=== PATIENT | male | born 1990 | race Caucasian/White ===

== ENCOUNTER 2016-04-28 01:43 | Observation (INO) | payer BC ==
[2016-04-28] VITALS (15 sets, daily range): BP systolic 118–139; BP diastolic 60–85; PULSE 64–85; RESP 12–19; TEMP 98; Ht 182.9 cm; Wt 106.0 kg
[~2016-04-28] VITALS: Ht 182.9 cm; Wt 106.0 kg
[2016-04-28] MEDS ORDERED: morphine 4 MG/ML VIAL IV STA ×2 (02:29→03:13)
[2016-04-28] MEDS ORDERED: ONDANSETRON 4 MG INJ IV STA (02:29)
[2016-04-28] MEDS ORDERED: SOD CHLORIDE 0.9% 1,000 ML IV STA (02:29)
[2016-04-28 03:15] LABS: ADD SCAN DIFF NO
[2016-04-28 03:28] LABS: BASOPHILS % 0.3 % (0.0-2.0); EOSINOPHILS # 0.1 10^3/ul (0.0-0.5); EOSINOPHILS % 0.8 % (0.0-7.0); HEMATOCRIT 42.5 % (42.0-52.0); HEMOGLOBIN 14.7 g/dl (14.0-18.0); LYMPHOCYTES % 18.8 % (15.0-51.0); MEAN CORPUSCULAR HEMOGLOBIN 31.2 pg (29.0-33.0); MEAN CORPUSCULAR HGB CONC 34.6 g/dl (32.0-37.0); MEAN CORPUSCULAR VOLUME 90.2 fl (82.0-101.0); MEAN PLATELET VOLUME 11.2 fl (7.4-10.4); MONOCYTE # 0.6 10^3/ul (0.3-0.9); MONOCYTES % 5.8 % (0.0-11.0); NEUTROPHILS % 73.8 % (39.0-77.0); PLATELET COUNT 217 10^3/UL (140-415); RED BLOOD COUNT 4.71 10^6/ul (4.70-6.10); RED CELL DISTRIBUTION WIDTH 12.5 % (11.5-14.5); WHITE BLOOD COUNT 10.8 10^3/ul (4.8-10.8)
[2016-04-28 03:32] LABS: POTASSIUM 3.7 mmol/L (3.5-5.1)
[2016-04-28 03:34] LABS: CREATININE 0.86 mg/dl (0.61-1.24)
[2016-04-28 03:35] LABS: ALBUMIN/GLOBULIN RATIO 1.21; BILIRUBIN,INDIRECT 0.5 mg/dl (0-1.1); BILIRUBIN,TOTAL 0.5 mg/dl (0.2-1.3); CALCIUM 9.3 mg/dl (8.4-10.2); TOTAL PROTEIN 7.3 g/dl (6.1-8.1)
[2016-04-28] MEDS ORDERED: SOD CHLORIDE 0.9% 100 ML ONE (03:45)
[2016-04-28] MEDS ORDERED: IOHEXOL 300MG/ML 150 ML BTL ONE (03:45)
--- NOTE | 2016-04-28 04:10 | RADRPT ---
PROCEDURE: CT Abdomen and pelvis with contrast. CLINICAL INDICATION: Abdominal pain. TECHNIQUE: CT scan of the abdomen and pelvis with contrast was performed on a multi-detector high -resolution CT scanner. The patient was scanned following the uncomplicated intravenous administrat ion of 100 cc of Omnipaque 300. Coronal and sagittal reformatted images were obtained from the axia l source images. Images were reviewed on a high-resolution PACS workstation. One or more of the following dose reduction techniques were used: - Automated exposure control. - Adjustment of the mA and/or kV according to patient size. - Use of iterative reconstruction technique. Exam CTD/vol = 20.04 mGy. Total exam DLP = 1326.04 mGy-cm. COMPARISON: None. FINDINGS: Evaluation of the lung bases demonstrates no pleural or parenchymal disease. Abdomen: The liver is normal in size. There is no focal mass or dilatation of the biliary tree. T he gallbladder is not distended. The spleen, pancreas and bilateral adrenal glands are within dov l limits. Bilateral kidneys are normal in size with symmetric enhancement. There is no focal mass, hydronephrosis or hydroureter. There is no retroperitoneal adenopathy. The abdominal aorta is of normal caliber. There is a distended and fluid filled appendix extending medial and inferior to the cecum with mild adjacent stranding measuring up to 16 mm in diameter. There are multiple appendicoliths within the appendix measuring up to 7 mm. There is no bowel obstruction or free air. There is no diverticulosi s or diverticulitis. There is no ascites. Pelvis: The bladder is unremarkable. There is mild pelvic free fluid. The prostate and seminal ve sicles are within normal limits. There is no significant pelvic adenopathy. Evaluation of the osseous structures demonstrates no suspicious lytic or blastic lesion. IMPRESSION: Acute appendicitis with multiple appendicoliths. Mild pelvic free fluid. A call report was made to Dr. Hedrick at 04:06 a.m. .Mikie Cast MD, MD Date Time Electronically viewed and signed by .Mikie Cast MD, MD on 04/28/2016 04:09 .T/
[2016-04-28] MEDS ORDERED: ONDANSETRON 4 MG INJ IV PRN ×2 (05:00→12:00)
[2016-04-28] MEDS ORDERED: ACETAMINOPHEN 325 MG TAB PO PRN (05:00)
--- NOTE | 2016-04-28 05:22 | HP ---
Date/Time of Note Date/Time of Note DATE: 04/28/16 TIME: 05:21 Assessment/Plan VTE Prophylaxis VTE Prophylaxis Intervention: anti-embolic stocking VTE Contraindication Reason: bleeding (Risk - Surgical Patient) Assessment/Plan Assessment/Plan 1) Acute appendicitis Qualified Code: K35.80 - Acute appendicitis, unspecified acute appendicitis type - Admit to Med-Surg - NPO - Pain Control - CONSULT: Surgery - Dr. Pina notified by ER Physician HPI/ROS Admit Date/Time Admit Date/Time Hx of Present Illness Chief Complaint Mid abdominal pain x3 days HPI 26-year-old male presenting with upper abdominal and mid abdominal pain for about 3 days. He thought he just had the flu or something and tried to "power through it". However, associated symptoms became worse and He has had associated nausea and nonbloody and nonbilious vomiting. He denies any associated fevers or chills. No diarrhea or constipation. The pain has been constant, aching, nonradiating, worse with food, with no alleviating factors. Last ate at 0900 today, but threw it all up. ER Course per ER Physician: Patient is presenting with abdominal pain with nausea and vomiting. Vitals are stable and he is afebrile. On my exam he had right lower quadrant tenderness to palpation at McBurney's point. He has no peritonitis or evidence of sepsis. Labs were within normal limits. CT of the abdomen and pelvis shows evidence of acute appendicitis. I spoke with the surgeon environmental services assistant, who will come see the patient. The patient will be admitted to the hospitalist. His pain was controlled with morphine and his nausea was controlled with Zofran. He remained stable while in the ED. ROS General: Admits: Poor Appetite Denies: Fever, Chills, Generalized Body Aches Eyes: Admits: Denies: Blurry Vision, Double Vision, Yellow Eyes HENT: Admits: Denies: Ear Pain/Pressure, Runny/Stuffy Nose, Sore Throat Cardiovascular: Admits: Denies: Chest Pain, Palpitations, Leg Swelling Pulmonary: Admits: Denies: Cough, Wheeze, Shortness of Breath Gastrointestinal: Admits: Abdominal Pain, Nausea, Vomiting - see HPI Denies: Diarrhea, Blood in Stool, Black-Colored Stool Urogenital: Admits: Denies: Burning with Urination, Urinary Frequency Musculoskeletal: Admits: Denies: Joint Pain, Joint Swelling, Muscle Pain Neurological: Admits: Denies: Headache, Dizziness, Numbness, Tingling, Shooting Pains Integumentary: Admits: Denies: Rash, Itch PMH/Family/Social Past Medical History Medical History: no pertinent history Past Surgical History Past Surgical Hx: no surgical history Social History Smoking Status: Unknown if ever smoked Exam/Review of Systems Vital Signs Vitals Vital Signs Date Time Temp Pulse Resp B/P Pulse Ox O2 Delivery O2 Flow Rate FiO2 04/28/16 03:39 98.6 77 18 147/95 100 Room Air Exam Exam General: Sleeping, easily arousable. Patient is comfortable thanks to pain medication, in no acute distress. Non-toxic. Laying completely still or his abdomen will hurt. Eyes: Sclera White, EOMI HENT: Normocephalic/Atraumatic, External Ears/Nose Normal, Moist Mucus Membranes Neck: Supple, Trachea Midline Cardiovascular: Normal Rate, Normal Rhythm, Normal S1 and S2, No Murmur, No Extra Sounds Pulmonary: Clear to Auscultation Bilaterally, Normal Respiratory Effort, No Rales, Rhonchi or Wheezes Gastrointestinal: Deferred as patient has already been proven to be an acute appendicitis patient and the surgeon will examin him when he arrives. Urogenital: Deferred Musculoskeletal: Normal Muscle Bulk and Tone Neurological: CN II - XII Grossly Intact, Non-Focal, Speech Normal Integumentary: Normal Moisture and Temperature, Good Turgor, No Jaundice, No Rash Lymphatic: No Cervical Lymphadenopathy Psychiatric: Appropriate Mood and Affect, Good Eye Contact Labs Result Diagram: 04/28/16 0235 04/28/16 0235 Medications Medications Laboratory Tests Test 04/28/16 02:35 White Blood Count 10.810^3/ul Red Blood Count 4.7110^6/ul Hemoglobin 14.7g/dl Hematocrit 42.5% Mean Corpuscular Volume 90.2fl Mean Corpuscular Hemoglobin 31.2pg Mean Corpuscular Hemoglobin Concent 34.6g/dl Red Cell Distribution Width 12.5% Platelet Count 89469^3/UL Mean Platelet Volume 11.2fl Neutrophils % 73.8% Lymphocytes % 18.8% Monocytes % 5.8% Eosinophils % 0.8% Basophils % 0.3% Nucleated Red Blood Cells % 0.0/100WBC Neutrophils # 8.010^3/ul Lymphocytes # 2.010^3/ul Monocytes # 0.610^3/ul Eosinophils # 0.110^3/ul Basophils # 0.010^3/ul Nucleated Red Blood Cells # 0.010^3/ul Sodium Level 142mmol/L Potassium Level 3.7mmol/L Chloride Level 102mmol/L Carbon Dioxide Level 27mmol/L Anion Gap 17 Blood Urea Nitrogen 12mg/dl Creatinine 0.86mg/dl Glucose Level 100mg/dl Calcium Level 9.3mg/dl Total Bilirubin 0.5mg/dl Direct Bilirubin 0.00mg/dl Indirect Bilirubin 0.5mg/dl Aspartate Amino Transf (AST/SGOT) 44IU/L Alanine Aminotransferase (ALT/SGPT) 39IU/L Alkaline Phosphatase 93IU/L Total Protein 7.3g/dl Albumin 4.0g/dl Globulin 3.30g/dl Albumin/Globulin Ratio 1.21 Lipase 82U/L Current Medications Medications (Trade) Dose Ordered Sig/Bowen Route PRN Reason Start Time Stop Time Status Last Admin Dose Admin Sodium Chloride (NS) 1,000 ml @ 1,000 mls/hr Q1H STAT IV 04/28/16 02:29 04/28/16 03:28 DC 04/28/16 02:38 Morphine Sulfate (morphine) 4 mg ONCE STAT IV 04/28/16 02:29 04/28/16 02:30 DC 04/28/16 02:38 Ondansetron HCl (Zofran Inj) 4 mg ONCE STAT IV 04/28/16 02:29 04/28/16 02:30 DC 04/28/16 02:38 Morphine Sulfate 4 mg 4 mg ONCE STAT IV 04/28/16 03:13 04/28/16 03:14 DC 04/28/16 03:37 Sodium Chloride (NS) 100 ml @ ud STK-MED ONCE .ROUTE 04/28/16 03:45 04/28/16 03:46 DC 04/28/16 04:00 Iohexol (Omnipaque 300mg/ ml) 150 ml STK-MED ONCE .ROUTE 04/28/16 03:45 04/28/16 03:46 DC 04/28/16 03:59 Ondansetron HCl (Zofran Inj) 4 mg BRIDGE ORDER PRN IV NAUSEA AND/OR VOMITING 04/28/16 05:00 04/29/16 04:59 Acetaminophen 650 mg 650 mg ER BRIDGE PRN PO MILD PAIN/FEVER 04/28/16 05:00 04/29/16 04:59 Sodium Chloride (NS) 1,000 ml @ 125 mls/hr Q8H IV 04/28/16 05:22 UNV IV Flush (NS 3 ml) 3 ml PER PROTOCOL IV 04/28/16 05:30 UNV Metoclopramide HCl (Reglan) 10 mg Q6H PRN IV NAUSEA AND/OR VOMITING 04/28/16 05:30 UNV Acetaminophen (Tylenol Supp) 650 mg Q6H PRN [place] PAIN LEVEL 1-3 OR FEVER 04/28/16 05:30 UNV Morphine Sulfate (morphine) 4 mg Q4H PRN IV SEVERE PAIN LEVEL 7-10 04/28/16 05:30 UNV Famotidine (Pepcid Iv) 20 mg Q12 IV 04/28/16 09:00 UNV Procedures Procedures PROCEDURE: CT Abdomen and pelvis with contrast. CLINICAL INDICATION: Abdominal pain. TECHNIQUE: CT scan of the abdomen and pelvis with contrast was performed on a multi-detector high-resolution CT scanner. The patient was scanned following the uncomplicated intravenous administration of 100 cc of Omnipaque 300. Coronal and sagittal reformatted images were obtained from the axial source images. Images were reviewed on a high-resolution PACS workstation. One or more of the following dose reduction techniques were used: - Automated exposure control. - Adjustment of the mA and/or kV according to patient size. - Use of iterative reconstruction technique. Exam CTD/vol = 20.04 mGy. Total exam DLP = 1326.04 mGy-cm. COMPARISON: None. FINDINGS: Evaluation of the lung bases demonstrates no pleural or parenchymal disease. Abdomen: The liver is normal in size. There is no focal mass or dilatation of the biliary tree. The gallbladder is not distended. The spleen, pancreas and bilateral adrenal glands are within normal limits. Bilateral kidneys are normal in size with symmetric enhancement. There is no focal mass, hydronephrosis or hydroureter. There is no retroperitoneal adenopathy. The abdominal aorta is of normal caliber. There is a distended and fluid filled appendix extending medial and inferior to the cecum with mild adjacent stranding measuring up to 16 mm in diameter. There are multiple appendicoliths within the appendix measuring up to 7 mm. There is no bowel obstruction or free air. There is no diverticulosis or diverticulitis. There is no ascites. Pelvis: The bladder is unremarkable. There is mild pelvic free fluid. The prostate and seminal vesicles are within normal limits. There is no significant pelvic adenopathy. Evaluation of the osseous structures demonstrates no suspicious lytic or blastic lesion. IMPRESSION: Acute appendicitis with multiple appendicoliths. Mild pelvic free fluid. VIVIANE TAI DO Apr 28, 2016 05:22 Procedures Procedures PROCEDURE: CT Abdomen and pelvis with contrast. CLINICAL INDICATION: Abdominal pain. TECHNIQUE: CT scan of the abdomen and pelvis with contrast was performed on a multi-detector high-resolution CT scanner. The patient was scanned following the uncomplicated intravenous administration of 100 cc of Omnipaque 300. Coronal and sagittal reformatted images were obtained from the axial source images. Images were reviewed on a high-resolution PACS workstation. One or more of the following dose reduction techniques were used: - Automated exposure control. - Adjustment of the mA and/or kV according to patient size. - Use of iterative reconstruction technique. Exam CTD/vol = 20.04 mGy. Total exam DLP = 1326.04 mGy-cm. COMPARISON: None. FINDINGS: Evaluation of the lung bases demonstrates no pleural or parenchymal disease. Abdomen: The liver is normal in size. There is no focal mass or dilatation of the biliary tree. The gallbladder is not distended. The spleen, pancreas and bilateral adrenal glands are within normal limits. Bilateral kidneys are normal in size with symmetric enhancement. There is no focal mass, hydronephrosis or hydroureter. There is no retroperitoneal adenopathy. The abdominal aorta is of normal caliber. There is a distended and fluid filled appendix extending medial and inferior to the cecum with mild adjacent stranding measuring up to 16 mm in diameter. There are multiple appendicoliths within the appendix measuring up to 7 mm. There is no bowel obstruction or free air. There is no diverticulosis or diverticulitis. There is no ascites. Pelvis: The bladder is unremarkable. There is mild pelvic free fluid. The prostate and seminal vesicles are within normal limits. There is no significant pelvic adenopathy. Evaluation of the osseous structures demonstrates no suspicious lytic or blastic lesion.
[2016-04-28] MEDS ORDERED: ACETAMINOPHEN 650 MG SUPP PR PRN (05:30)
[2016-04-28] MEDS ORDERED: morphine 2 MG INJ IV PRN (05:30)
[2016-04-28] MEDS ORDERED: METOCLOPRAMIDE 10 MG INJ IV PRN (05:30)
[2016-04-28] MEDS ORDERED: NACL 0.9% 3 ML SYG IV SCH (05:30)
--- NOTE | 2016-04-28 05:32 | ERA ---
ER Documentation Chief Complaint Date/Time DATE: 04/28/16 TIME: 05:29 Chief Complaint Mid abdominal pain x3 days HPI 26-year-old male presenting with upper abdominal and mid abdominal pain for about 3 days. He has had associated nausea and nonbloody and nonbilious vomiting. He denies any associated fevers or chills. No diarrhea or constipation. The pain has been constant, aching, nonradiating, worse with food , with no alleviating factors. ROS All systems reviewed and are negative except as per history of present illness. Allergies Allergies: Coded Allergies: No Known Allergy (Unverified , 04/28/16) PMhx/Soc Medical and Surgical Hx: pt denies Medical Hx, pt denies Surgical Hx Hx Alcohol Use: Yes (every other weekend) Hx Substance Use: Yes (marijuana) Hx Tobacco Use: No Smoking Status: Unknown if ever smoked FmHx Family History: No diabetes Physical Exam Vitals Vital Signs Date Time Temp Pulse Resp B/P Pulse Ox O2 Delivery O2 Flow Rate FiO2 04/28/16 03:39 98.6 77 18 147/95 100 Room Air 04/28/16 01:59 97.7 81 18 137/87 100 Physical Exam Const: Nontoxic, well-developed, well-nourished, mild distress secondary to pain Head: Atraumatic Eyes: Normal Conjunctiva ENT: Normal External Ears, Nose and Mouth. Neck: Full range of motion..~ No meningismus. Resp: Clear to auscultation bilaterally Cardio: Regular rate and rhythm, no murmurs Abd: Soft, right lower quadrant tenderness to palpation at McBurney's point, no rebound or guarding, no peritoneal sign, non distended. Normal bowel sounds Skin: No petechiae or rashes Back: No midline or flank tenderness Ext: No cyanosis, or edema Neur: Awake and alert Psych: Normal Mood and Affect Result Diagram: 04/28/16 0235 04/28/16 0235 Results 24 hrs Laboratory Tests Test 04/28/16 02:35 White Blood Count 10.810^3/ul Red Blood Count 4.7110^6/ul Hemoglobin 14.7g/dl Hematocrit 42.5% Mean Corpuscular Volume 90.2fl Mean Corpuscular Hemoglobin 31.2pg Mean Corpuscular Hemoglobin Concent 34.6g/dl Red Cell Distribution Width 12.5% Platelet Count 26863^3/UL Mean Platelet Volume 11.2fl Neutrophils % 73.8% Lymphocytes % 18.8% Monocytes % 5.8% Eosinophils % 0.8% Basophils % 0.3% Nucleated Red Blood Cells % 0.0/100WBC Neutrophils # 8.010^3/ul Lymphocytes # 2.010^3/ul Monocytes # 0.610^3/ul Eosinophils # 0.110^3/ul Basophils # 0.010^3/ul Nucleated Red Blood Cells # 0.010^3/ul Sodium Level 142mmol/L Potassium Level 3.7mmol/L Chloride Level 102mmol/L Carbon Dioxide Level 27mmol/L Anion Gap 17 Blood Urea Nitrogen 12mg/dl Creatinine 0.86mg/dl Glucose Level 100mg/dl Calcium Level 9.3mg/dl Total Bilirubin 0.5mg/dl Direct Bilirubin 0.00mg/dl Indirect Bilirubin 0.5mg/dl Aspartate Amino Transf (AST/SGOT) 44IU/L Alanine Aminotransferase (ALT/SGPT) 39IU/L Alkaline Phosphatase 93IU/L Total Protein 7.3g/dl Albumin 4.0g/dl Globulin 3.30g/dl Albumin/Globulin Ratio 1.21 Lipase 82U/L Current Medications Medications (Trade) Dose Ordered Sig/Bowen Route PRN Reason Start Time Stop Time Status Last Admin Dose Admin Sodium Chloride (NS) 1,000 ml @ 1,000 mls/hr Q1H STAT IV 04/28/16 02:29 04/28/16 03:28 DC 04/28/16 02:38 Morphine Sulfate (morphine) 4 mg ONCE STAT IV 04/28/16 02:29 04/28/16 02:30 DC 04/28/16 02:38 Ondansetron HCl (Zofran Inj) 4 mg ONCE STAT IV 04/28/16 02:29 04/28/16 02:30 DC 04/28/16 02:38 Morphine Sulfate 4 mg 4 mg ONCE STAT IV 04/28/16 03:13 04/28/16 03:14 DC 04/28/16 03:37 Sodium Chloride (NS) 100 ml @ ud STK-MED ONCE .ROUTE 04/28/16 03:45 04/28/16 03:46 DC 04/28/16 04:00 Iohexol (Omnipaque 300mg/ ml) 150 ml STK-MED ONCE .ROUTE 04/28/16 03:45 04/28/16 03:46 DC 04/28/16 03:59 Ondansetron HCl (Zofran Inj) 4 mg BRIDGE ORDER PRN IV NAUSEA AND/OR VOMITING 04/28/16 05:00 04/29/16 04:59 Acetaminophen 650 mg 650 mg ER BRIDGE PRN PO MILD PAIN/FEVER 04/28/16 05:00 04/29/16 04:59 Sodium Chloride (NS) 1,000 ml @ 125 mls/hr Q8H IV 04/28/16 05:22 UNV IV Flush (NS 3 ml) 3 ml PER PROTOCOL IV 04/28/16 05:30 UNV Metoclopramide HCl (Reglan) 10 mg Q6H PRN IV NAUSEA AND/OR VOMITING 04/28/16 05:30 UNV Acetaminophen (Tylenol Supp) 650 mg Q6H PRN [place] PAIN LEVEL 1-3 OR FEVER 04/28/16 05:30 UNV Morphine Sulfate (morphine) 4 mg Q4H PRN IV SEVERE PAIN LEVEL 7-10 04/28/16 05:30 UNV Famotidine (Pepcid Iv) 20 mg Q12 IV 04/28/16 09:00 UNV Procedures/MDM Patient is presenting with abdominal pain with nausea and vomiting. Vitals are stable and he is afebrile. On my exam he had right lower quadrant tenderness to palpation at McBurney's point. He has no peritonitis or evidence of sepsis. Labs were within normal limits. CT of the abdomen and pelvis shows evidence of acute appendicitis. I spoke with the surgeon automobile contract clerk, who will come see the patient. The patient will be admitted to the hospitalist. His pain was controlled with morphine and his nausea was controlled with Zofran. He remained stable while in the ED. Accepting Care Team: Current data and ongoing care discussed. Time: Time of admission Primary Provider: George Consulting: Yovani Outstanding Data: none Departure Diagnosis: Primary Impression: Acute appendicitis Qualified Code: K35.80 - Acute appendicitis, unspecified acute appendicitis type Condition: Serious EUGENE GAVIN MD Apr 28, 2016 05:32
[2016-04-28] MEDS: SOD CHLORIDE 0.9% 1,000 ML IV SCH ×2 (05:43→13:22)
[2016-04-28] MEDS ORDERED: ACETAMINOPHEN 1000 MG/100 ML IVPB ONE (07:00)
[2016-04-28] MEDS ORDERED: CEFAZOLIN 1 GM INJ ONE (07:00)
[2016-04-28] MEDS: FAMOTIDINE 20 MG INJ IV SCH ×2 (09:12→20:54)
[2016-04-28] MEDS ORDERED: BUPIVACAINE 0.25%/EPI (SDV) 30 ML INJ ONE (11:52)
[2016-04-28] MEDS ORDERED: FENTAnyl 50 MCG/ML VIAL ONE ×2 (11:57→12:30)
[2016-04-28] MEDS ORDERED: PROPOFOL 100 ML ONE (11:57)
[2016-04-28] MEDS ORDERED: hydrALAzine 20 MG INJ IV PRN (12:00)
[2016-04-28] MEDS ORDERED: HYDROmorphONE (0.2 MG/ML) 10ML SYG IV PRN ×3 (12:00)
[2016-04-28] MEDS ORDERED: MEPERIDINE 25 MG INJ IV PRN (12:00)
[2016-04-28] MEDS ORDERED: LABETALOL HCL 20MG INJ IV PRN (12:00)
[2016-04-28] MEDS ORDERED: EPHEDrine SULFATE 50 MG/5 ML SYG IV PRN (12:00)
[2016-04-28] MEDS ORDERED: FENTAnyl 50 MCG/ML VIAL IV PRN ×3 (12:00)
[2016-04-28] MEDS ORDERED: BUPIVACAINE 0.25%/EPI (SDV) 30 ML INJ INJ ONE (12:30)
--- NOTE | 2016-04-28 12:42 | CONS ---
[facility] INITIAL INPATIENT CONSULTATION NOTE DATE OF CONSULTATION: 04/28/2016 PLACE OF SERVICE: [facility] Emergency Department IMPRESSION AND PLAN: A very pleasant 26-year-old gentleman with a BMI of 31.7 as well as marijuana use, showing signs of acute appendicitis which appears to be early but nevertheless significant enough that warrants surgical intervention. I recommended laparoscopic, possible open appendectomy and reviewed the operation in detail as well as the risks, benefits, and alternatives. I answered all the patient's questions to the best of my ability and later spoke with his mother as well and obtained their permission to perform the operation. With above assessment I have recommended the following: Proceed to the operating room for laparoscopic, possible open appendectomy. Thank you again for allowing us to participate in the care of this very pleasant gentleman and his wonderful family. If there are any questions, please feel free to call me at [phone]. TOTAL VISIT TIME: Forty-five minutes of which more than half was spent in face- to-face discussion with the patient as well as discussions with his mother and coordination of care between multiple physicians and providers. UPDATED CLINICAL SUMMARY: The patient is a very pleasant 26-year-old gentleman with comorbid issues of BMI of 31.7 as well as marijuana use being admitted through the emergency department at [facility] for a 3-day history of abdominal pain associated with normal white blood cell count, but CT scan of the abdomen and pelvis was performed on 04/28/2016 showing acute appendicitis with multiple appendicoliths and an appendix that was measuring 7 mm in diameter. No evidence of perforation. COMORBIDITIES: 1. BMI 31.7. 2. Marijuana use. DATE OF ADMISSION: 04/28/2016 HISTORY AND PHYSICAL: The patient is a very pleasant 26-year-old gentleman with above-mentioned comorbidities whom we were kindly asked to consult regarding management of possible acute appendicitis. He reports having 3 days of abdominal pain associated with some nausea as well as vomiting at home and no fevers and chills, no diarrhea and no other major complaints. His workup was as above. ALLERGIES: NO KNOWN DRUG ALLERGIES. HOME MEDICATIONS: None. 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 He reports smoking marijuana every other day on a regular basis. No tobacco abuse, no significant alcohol abuse, and no intravenous drug use. FAMILY HISTORY: No major medical, surgical, or oncologic problems in the family as reported by the patient or noted in his chart. REVIEW OF SYSTEMS: Other than the above-mentioned, there are no other pertinent positives or pertinent negatives in a complete 14-point review of systems. PHYSICAL EXAMINATION: GENERAL: The patient appears to be a very pleasant gentleman of mixed descent, appearing stated age, lying in bed comfortably, and in no acute distress. VITAL SIGNS: Temperature is 98.0, blood pressure 122/70, pulse 61, respiratory rate 14, pulse oximetry 100% on room air. HEENT: Normocephalic and atraumatic. Extraocular muscles and hearing are grossly intact bilaterally and symmetrically. Sclerae are nonicteric. Oral cavity is clear; oral mucosa appeared to be pink and moist. Dentition: good. NECK: Supple. There is no lymphadenopathy or JVD. There is no submental, submandibular or supraclavicular lymphadenopathy. CHEST: Rises symmetrically with each breath; patient is breathing comfortably. There are no audible wheezes, rales or rhonchi on the gross exam. HEART: Pulse is regular and palpable on the left wrist. Capillary refill was normal. Carotid pulses are palpable bilaterally and symmetrically in the neck. EXTREMITIES: Lower extremities contain no pitting edema around the ankles bilaterally and symmetrically. ABDOMEN: Significant for tenderness to palpation in the right lower quadrant with mild guarding, but no peritoneal signs. Abdomen is otherwise soft and nondistended. There is no organomegaly, caput medusae, engorged subcutaneous veins, or ascites. SKIN: Appears to be pink and feels warm to touch. NEUROLOGIC: Awake, alert, and follows commands appropriately. LABORATORY VALUES: CBC is normal with platelets of 217. Electrolytes are also normal as well as liver function and injury parameters. Albumin 4.0, lipase 82. IMAGING: As above. Please note that I personally reviewed all the available pertinent images and I agree in general with their overall reported findings. Dictated By: RAMONA KEARNS/QUENTIN Conf#: [id number] DID#: [id number] MTDD
[2016-04-28] MEDS ORDERED: DEXAMETHASONE 4 MG/ML 1 ML INJ ONE (13:18)
[2016-04-28] MEDS ORDERED: ONDANSETRON 4 MG INJ ONE (13:19)
[2016-04-28] MEDS ORDERED: NA PHOSPHATE/BIPHOS 133 ML ENEMA PR PRN (15:00)
[2016-04-28] MEDS ORDERED: BISACODYL 10 MG SUPP PR PRN (15:00)
[2016-04-28] MEDS ORDERED: HYDROmorphONE 1 MG/ML SYG IV PRN (15:00)
[2016-04-28] MEDS ORDERED: DOCUSATE SODIUM 100 MG CAP PO PRN (15:00)
[2016-04-28] MEDS ORDERED: HYDROCODONE/APAP (5/325) TAB PO PRN ×2 (15:00)
[2016-04-28] MEDS: HYDROmorphONE 1 MG/ML SYG IV PRN ×2 (15:34→20:54)
[2016-04-28] MEDS ORDERED: D5W-0.45 NACL + KCL 20 MEQ 1,000 ML IV SCH (16:00)
--- NOTE | 2016-04-28 16:55 | OPR ---
Date/Time of Note Date/Time of Note DATE: 04/28/16 TIME: 16:54 Operative Report Free Text/Dictation [facility] INPATIENT OPERATIVE NOTE PLACE OF SERVICE: [facility] DATE OF SURGERY: 04/28/2016 PREOPERATIVE DIAGNOSIS: 1. Acute appendicitis 2. BMI 31.7. 3. Marijuana use. POSTOPERATIVE DIAGNOSIS: 1. Acute appendicitis 2. BMI 31.7. 3. Marijuana use. OPERATION: 1. Laparoscopic appendectomy SURGEON: Ramona Mendiola M.D. DYE LAB TECHNICIAN: None ANESTHESIA: General endotracheal tube anesthesia ANESTHESIOLOGIST: Prince Arnold M.D. UPDATED CLINICAL SUMMARY: The patient is a very pleasant 26-year-old gentleman with comorbid issues of BMI of 31.7 as well as marijuana use being admitted through the emergency department at [facility] for a 3-day history of abdominal pain associated with normal white blood cell count, but CT scan of the abdomen and pelvis was performed on 04/28/2016 showing acute appendicitis with multiple appendicoliths and an appendix that was measuring 7 mm in diameter. No evidence of perforation. COMORBIDITIES: 1. BMI 31.7. 2. Marijuana use. BRIEF SUMMARY: An otherwise uncomplicated laparoscopic appendectomy was performed with findings of non-perforated appendicitis. BRIEF HISTORY: The patient is a very pleasant 26-year-old as mentioned above who was admitted with diagnosis of acute appendicitis. I met with the patient and family and counseled them regarding the possible options of treatment, and I strongly suggested a laparoscopic, possible open appendectomy. We reviewed the operation in detail as well as the risks, benefits, alternatives, and expected outcomes of this operation. After careful consideration of all the risks, benefits, and alternatives, the patient and family appeared to understand those risks and wished to proceed with surgery. For a detailed report of my consultation with patient and family, please refer to my separate consultation note. STATEMENT OF THE INFORMED CONSENT: The patient and family appeared to understand the risks of the operation to include, but not be limited to risk of postoperative pain and scar tissue, possible infection or bleeding requiring other interventions such as opening the wound, placement of drainage catheters, or other operative interventions; possible injury to surrounding to structures including bowel, bladder, bile duct, or blood vessels, or solid organs such as liver, kidney, or pancreas requiring other interventions or procedures; possible leakage of bowel from anastomotic sites or suture lines causing significant increase in morbidity and mortality and requiring multiple interventions including but not limited to, placement of drainage catheters, imaging studies, as well as operative interventions; possible other source of sepsis such as urinary tract infections or pneumonias, or other sources of potentially life threatening problems such as deep venous thrombus formation causing pulmonary embolism, myocardial arrhythmias and infarctions, and even . After careful consideration of all their options, the patient and family appeared to understand and wished to proceed with surgery. DESCRIPTION OF PROCEDURE: After obtaining informed consent, the patient was brought into the operating room and was placed in a normal supine position, where successful general endotracheal tube anesthesia was performed. Intravenous access was already in place and intravenous antimicrobials had been appropriately chosen and dosed prior to the operation. The patient's abdominal skin was prepped and draped from the nipple line down to the level of the upper thighs in the usual sterile fashion. We then called a surgical time-out where the patient's identification, date of , nature of the operation, allergies , presence of intravenous antimicrobials, presence of needed equipment, and any other concerns were reviewed and agreed upon by all members of the operating room team. We then started the operation by placing a 5 mm skin incision in the left lower quadrant and then introduced a 5 mm [employer] trocar into the peritoneal space, visualizing all the layers of the abdominal wall as we entered. Note that there was no indication of any injury to underlying structures with our entry into the peritoneal space. We insufflated the abdominal cavity to a maximum pressure of 15 mmHg and again inspected the area of insertion and ensured no obvious injury to underlying structures prior to inspecting the abdominal cavity and showing no obvious pus, bowel contents, or other abnormal features. We could not see the appendix very well. We, therefore, injected the future sites of our other trocars with 0.25% Marcaine with epinephrine and placed a 5 mm [employer] trocar into the midline suprapubic area, taking care not to injure the bladder. We also placed a 12 mm trocar in the umbilical midline area, all under direct visualization. With our instruments in place, we had excellent visualization and access to the right lower quadrant. We then identified the appendix, which was inflamed but had a normal base coming out of the cecum. I then went ahead and used judicious amount of cautery as well as mostly blunt dissection to circumferentially isolate the base of the appendix and then transected this using one firing of the white load of the Endo -PADDY stapler. We also repeated the firing on the mesentery of the appendix and completely disconnected the organ from the colon, delivered this out through the 12 mm trocar site inside of an EndoCatch bag without having to enlarge the fascial defect as well as without contaminating the wound. The specimen was sent to Pathology for further analysis. We then ensured adequate hemostasis and bile stasis, removed all our equipment including the pneumoperitoneum from the abdominal cavity prior to closing the infraumbilical fascia with 1 figure-of- eight 0 Vicryl suture on a UR-6 needle, washing the wounds with copious amounts of normal saline, injecting the initial insertion point of the trocar with 0.25 % Marcaine with epinephrine, and then closing the skin using interrupted 4-0 Monocryl sutures. Light dressing was then applied. At the end of the operation, both the sponge count and needle count were reportedly correct x2. The patient tolerated the procedure without any reported complications. ESTIMATED BLOOD LOSS: Less than 10 mL. BLOOD OR BLOOD PRODUCT TRANSFUSIONS: None to my knowledge. SPECIMENS: 1. Appendix COMPLICATIONS: None. DISPOSITION: Recovery area. Disclaimer: Inadvertent spelling and grammatical errors are likely due to EHR/ dictation software use and do not reflect on the quality of delivered patient care. RAMONA MENDIOLA M.D. Apr 28, 2016 16:54
[2016-04-29 05:52] LABS: ADD SCAN DIFF NO
[2016-04-29 06:09] LABS: BASOPHILS % 0.2 % (0.0-2.0); EOSINOPHILS % 0.1 % (0.0-7.0); HEMATOCRIT 41.2 % (42.0-52.0); HEMOGLOBIN 14.4 g/dl (14.0-18.0); LYMPHOCYTES # 1.8 10^3/ul (0.8-2.9); LYMPHOCYTES % 14.2 % (15.0-51.0); MEAN CORPUSCULAR HEMOGLOBIN 31.8 pg (29.0-33.0); MEAN CORPUSCULAR VOLUME 90.9 fl (82.0-101.0); MEAN PLATELET VOLUME 11.3 fl (7.4-10.4); MONOCYTE # 0.8 10^3/ul (0.3-0.9); MONOCYTES % 6.4 % (0.0-11.0); NEUTROPHIL # 10.2 10^3/ul (1.6-7.5); NEUTROPHILS % 78.6 % (39.0-77.0); PLATELET COUNT 201 10^3/UL (140-415); RED BLOOD COUNT 4.53 10^6/ul (4.70-6.10); RED CELL DISTRIBUTION WIDTH 12.5 % (11.5-14.5); WHITE BLOOD COUNT 12.9 10^3/ul (4.8-10.8)
[2016-04-29 06:19] LABS: CREATININE 0.84 mg/dl (0.61-1.24)
[2016-04-29 06:20] LABS: CALCIUM 9.2 mg/dl (8.4-10.2)
[2016-04-29 07:06] LABS: MAGNESIUM 1.9 mg/dl (1.7-2.5); PHOSPHORUS 5.6 mg/dl (2.5-4.9)
[2016-04-29 07:35] LABS: THYROID STIMULATING HORMONE 0.575 MIU/L (0.465-4.680)
[2016-04-29 08:30] VITALS: BP 144/83; PULSE 59; RESP 18
[2016-04-29] MEDS ORDERED: FAMOTIDINE 20 MG INJ IV SCH (09:00)
[2016-04-29] MEDS ORDERED: INFLUENZA VIRUS VACCINE 0.5 ML (DISPENSING) IM* ONE (09:00)
[2016-04-29] MEDS ORDERED: ENOXAPARIN 40 MG/0.4 ML SYG SC SCH (09:00)
--- NOTE | 2016-04-29 11:55 | PDOCDIS ---
Discharge Instructions DIAGNOSIS Discharge Diagnosis: Acute appendicitis. Status post laparoscopic appendectomy. CONDITION Patient Condition: Stable HOME CARE INSTRUCTIONS: Diet Instructions: Regular FOLLOW UP/APPOINTMENTS Appointments Rafal Pina MD Specialty: General Surgery [facility] [address] [address] [place], [place] [id number] Office OTHER ORDERS: Other Orders: 1. Regular diet as tolerated. 2. Keep incisions clean and dry. May shower. Avoid tub baths and swimming for 2 weeks. Use mild soap and pat dry the incisions. 3. Take medications as needed for pain. 4. Call the surgeon or go to the nearest ER if you have severe abdominal pain despite pain medications. 5. Call the surgeon or go to the nearest ER if you notice any bleeding or secretions coming out of the incision sites. Also call the surgeon if you notice any blood in stool, if you have persistent fevers, or any other unusual signs or symptoms. 6. Follow-up with the surgeon Dr. Pina in 7 days for incision check. 7. Avoid heavy lifting [more than 25 pounds] for 8 weeks. SCHOOL/WORK RELEASE May return to School/Work on: May 02, 2016 May return to School/Work with: With Restrictions School/Work Release Comment: No weight bearing >25 lbs for 8 weeks. ESAU ARCE NP Apr 29, 2016 11:55
[2016-04-29] MEDS ORDERED: DOCU-144 PO (11:58)
[2016-04-29] MEDS ORDERED: CEPH-443 PO (11:58)
[2016-04-29] MEDS ORDERED: HYDR-3498 PO (11:58)
--- NOTE | 2016-04-29 13:08 | DS ---
DATE OF ADMISSION: 04/28/2016 DATE OF DISCHARGE: 04/29/2016 FINAL DIAGNOSES: 1. Acute appendicitis. Status post laparoscopic appendectomy. 2. Obesity. BMI of 31.7 kg/m sq. 3. Recreational marijuana use. CONSULTANTS: Dr. Rafal Pina, General Surgery [facility] COURSE: This is a 25-year-old male with no significant past medical history who came to the emergency room with a chief complaint of upper and mid abdominal pain for 3 days. The patient had associated nausea and nonbloody, nonbilious vomiting. The patient had no leukocytosis upon admission. The patient had no febrile illness. The patient underwent a CT scan of the abdomen and pelvis that showed acute appendicitis with multiple appendicoliths. Provided the patient's history of present illness and the diagnostic findings, a clinical decision was made to admit the patient to inpatient setting to have him further evaluated. The patient was admitted to inpatient medical/surgical floor. The patient was kept n.p.o. He was provided with adequate pain control. The patient was started on IV fluids. A general surgery consult was called on this patient. The patient was taken to OR and the patient underwent a laparoscopic appendectomy. Postoperatively, the patient was transferred to medical/surgical floor. The patient was started on a clear liquid diet, and the patient's diet was advanced as tolerated to a regular consistency diet without any significant gastrointestinal symptoms. The patient was provided with adequate pain control. He was encouraged to use incentive spirometry. He was encouraged on frequent ambulation. The patient started passing gas. The patient was cleared by general surgery to be discharged home. The patient also has history of marijuana abuse. The patient was advised on quitting the use of marijuana. The patient is also obese with a BMI of 31.7 kg/m sq. The patient was advised on weight reduction. The patient had a stable hospital course. DISCHARGE DISPOSITION/PLAN: The patient will be discharged home today. The patient was instructed to take a regular diet as tolerated. He was instructed to keep the incisions clean and dry and he may shower, but avoid hot tub bath and swimming for 2 weeks. He was instructed to use mild soap and pat dry the incisions. He was instructed to take medications as needed for pain. He was instructed to call the surgeon or go to the nearest ER if he has any severe abdominal pain despite pain medications or if he has any bleeding or secretions coming out of the incision sites. He was also instructed to call the surgeon or go to the nearest emergency room if he notices any blood in the stool, if he has persistent fevers or any other unusual signs or symptoms. The patient was instructed to follow up with Dr. Pina in 7 days for incision check. He was instructed to avoid heavy lifting of more than 25 pounds for 8 weeks. The patient verbalized understanding of his discharge instructions. CONDITION AT DISCHARGE: Stable. DISCHARGE MEDICATIONS: 1. Keflex 500 mg p.o. q.8h. x7 days. 2. Colace 100 mg p.o. b.i.d. x7 days. 3. Cambria 5/325 one tablet q.4h. p.r.n. pain (#15 tablets). PERTINENT LABORATORIES, DIAGNOSTIC DATA, AND PROCEDURES: 1. Laparoscopic appendectomy on 04/28/2016. 2. CT scan of the abdomen and pelvis on admission. Acute appendicitis with multiple appendicoliths. Mild pelvic free fluid. 3. Latest CBC: WBC 12.9, hemoglobin 14.4, hematocrit 41.2, platelet count 201. 4. Latest BMP: Sodium 141, potassium 5.0, chloride 100, carbon dioxide 26, anion gap 20, BUN 8, creatinine 0.84, glucose 104, calcium 9.2, phosphorus 5.6, magnesium 1.9. 5. Hemoglobin A1c 5.1. 6. Thyroid panel: TSH 0.375, free T4 1.7. At this time I would like to thank Dr. Pina for seeing the patient, doing the necessary procedures, and providing clinical recommendations. The case and management of this patient was fully discussed with Dr. Trotter. Approximately 35 minutes were spent on coordinating the discharge on this patient. ESAU TROTTER MD, AM/QUENTIN Conf#: [id number] DID#: [id number] MTDD
== END 2016-04-29 14:34 | disposition home or self-care (01) ==
LOC: E/R 01:43 → SDS 10:40 → PP2 15:17 → SDS 19:49 → PP2 19:49
PROVIDERS: ADMIT Family Medicine; ATTEND Family Medicine
DX: K35.80 Unspecified acute appendicitis (principal); E66.9 Obesity, unspecified; Z68.31 Body mass index [BMI] 31.0-31.9, adult; F12.929 Cannabis use, unspecified with intoxication, unspecified; Z23 Encounter for immunization
CPT/HCPCS: 36415; 44970; 74177; 80048; 80053; 83036; 83690; 83735; 84100; 84439; 84443; 85025; 90686; 96374; 96375; 96376; 99285; G0008; G0378; J0131; J0690; J1100; J1170; J1650; J2270; J2405; J3010; J3480; J7030; Q9967

== ENCOUNTER 2016-05-25 08:49 | Outpatient (CLI) | payer BC ==
[~2016-05-25] VITALS: Ht 175.3 cm; Wt 106.4 kg
[~2016-05-25 08:49] MED LIST: CEPH-443 PO; DOCU-144 PO; HYDR-3498 PO
[2016-05-25 08:53] VITALS: BP 120/58; PULSE 66; RESP 16; Ht 175.3 cm; Wt 106.4 kg
--- NOTE | 2016-05-25 12:15 | PN ---
Date/Time of Note Date/Time of Note DATE: 05/25/16 TIME: 12:13 Assessment/Plan Assessment/Plan Assessment/Plan [facility] Progress Note Date of Service: 05/25/16 Today's Impression & Plan: Overall doing well post op without major issues. No major wound problems. With above assessment, I've recommended the following for today: 1. F/u with PCP 2. F/u with us prn Thank you again for your great care of this very pleasant patient and wonderful family. If there are any questions, please feel free to call me at [phone]. TOTAL VISIT TIME: 20 minutes of which more than half was spent in [id number] discussion with the patient, possibly including family, as well as coordination of care between multiple physicians and providers. Disclaimer: Inadvertent spelling or grammatical errors are likely due to EHR/ dictation software use and do not reflect on the overall quality of patient care. Updated Clinical Summary: The patient is a very pleasant 26-year-old gentleman with comorbid issues of BMI of 31.7 as well as marijuana use being admitted through the emergency department at [facility] for a 3-day history of abdominal pain associated with normal white blood cell count, but CT scan of the abdomen and pelvis was performed on 04/28/2016 showing acute appendicitis with multiple appendicoliths and an appendix that was measuring 7 mm in diameter. No evidence of perforation. S/p lap appy 04/28/16 for acute appendicitis. COMORBIDITIES: 1. BMI 31.7. 2. Marijuana use. 3. S/p lap appy 04/28/16 for acute appendicitis at [facility]. Subjective: No major events or complaints since d/c; no abd pain and under control with medications; no n/v/d; no sob or cp; + flatus; + BM and normal; + activity Objective: Vitals: See below Exam: GENERAL: On exam, the patient was sitting in a chair and appeared to be comfortable and in no acute distress. ABDOMEN: Soft, nontender and nondistended. Incisions are clean, dry and intact without any evidence of erythema, edema, discharge, or hernia. There are no peritoneal signs or guarding. SKIN: Skin appears to be pink and feels warm to touch. NEUROLOGIC: Patient is awake, alert, and follows commands appropriately. Exam/Review of Systems Vital Signs Vitals Vital Signs Date Time Temp Pulse Resp B/P Pulse Ox O2 Delivery O2 Flow Rate FiO2 05/25/16 08:53 98.6 66 16 120/58 96 Room Air RAMONA MENDIOLA M.D. May 25, 2016 12:15
== END 2016-05-25 16:26 | disposition home or self-care (01) ==
LOC: HPC 08:49
PROVIDERS: ATTEND Transplant Surgery
DX: Z09 Encounter for follow-up examination after completed treatment for conditions other than malignant neoplasm (principal); Z87.19 Personal history of other diseases of the digestive system; F12.90 Cannabis use, unspecified, uncomplicated; Z90.49 Acquired absence of other specified parts of digestive tract
CPT/HCPCS: G0463

== ENCOUNTER 2016-07-01 18:32 | Emergency (ER) | payer BC ==
[~2016-07-01] VITALS: Ht 172.7 cm; Wt 104.0 kg
[~2016-07-01 18:32] MED LIST changes: -CEPH-443 PO; -HYDR-3498 PO
[2016-07-01 18:36] VITALS: Ht 172.7 cm; Wt 104.0 kg
--- NOTE | 2016-07-01 19:36 | ERD ---
ER Documentation Chief Complaint Date/Time DATE: 07/01/16 TIME: 19:25 Chief Complaint abscess buttocks HPI This 26-year-old male patient presents to emergency department today with 2 day history of red raised tenderness above gluteal cleft. Patient denies fever, nausea, vomiting, reports waking with chills this morning, patient reports that he is having pain with ambulating, no history of MRSA, patient denies history of any skin infection or abscess in the past. ROS All systems reviewed and are negative except as per history of present illness. Medications Home Meds Active Scripts Docusate Sodium* (Colace*) 100 Mg Capsule, 100 MG PO BID for 10 Days, #20 CAP Prov:ESAU ARCE HEALTH CARE MANAGER 04/29/16 Allergies Allergies: Coded Allergies: No Known Allergy (Unverified , 04/28/16) PMhx/Soc History of Surgery: No Anesthesia Reaction: No Hx Neurological Disorder: No Hx Respiratory Disorders: No Hx Cardiac Disorders: No Hx Psychiatric Problems: No Hx Miscellaneous Medical Probl: No Hx Alcohol Use: Yes (occassional) Hx Substance Use: Yes (marijuana use every other night) Hx Tobacco Use: No Smoking Status: Current every day smoker Physical Exam Vitals Vital Signs Date Time Temp Pulse Resp B/P Pulse Ox O2 Delivery O2 Flow Rate FiO2 07/01/16 18:36 98.0 103 20 148/88 100 Vitals stable, triage notes reviewed Physical Exam Const: No acute distress Head: Atraumatic Eyes: Normal Conjunctiva, PERRLA, EOMI ENT: Normal External Ears, Nose and Mouth. Mucous membranes moist Neck: Resp: Chest rise and fall symmetrically, clear to auscultation bilaterally, no respiratory distress Cardio: Abd: Skin: Firm nonfluctuating nodule, tender to palpation, erythemic, above the gluteal cleft, Back: Ext: Neur: Awake and alert Psych: Normal Mood and Affect Procedures/MDM This 26-year-old male patient presents to emergency department today for evaluation of a firm tender raised nodule above gluteal cleft, symptoms started 2 days ago. MRSA is not suspected at this time however likely. Patient will be discharged home with dual antibiotic treatment of Keflex, Bactrim, and Motrin for pain. Return to emergency department if nodule becomes fluctuating for incision and drainage. Return for worsening of symptoms, worsening pain, fever. I feel the patient is stable for discharge at this time with reevaluation in 48 hours by primary care physician or return to [facility]. I have discussed results, examination findings, the treatment plan with the patient and family present prior to discharge. Indications for emergent reevaluation, side effects of medication were also discussed. All questions were answered. Patient verbalizes understanding and agrees with plan of care. Departure Diagnosis: Primary Impression: Abscess Condition: Good Patient Instructions: Abscess, Incision And Drainage Additional Instructions: Thank you for for coming to [facility] for your care today. Please ask your nurse or provider if you have questions about your care today and do not leave until all your questions have been answered. Please use any medications given as directed and follow-up with your doctor (or the doctor you were referred to) in the next 2-3 days. If you do not have a primary care doctor you may follow up at the [facility] (listed below). You may also use motrin and tylenol as needed for fever and/or pain unless instructed otherwise by your provider or nurse. Indications for more urgent follow-up have been discussed, but you may return to the Emergency Department at ANY time for any worrisome or worsening symptoms. If you have abdominal pain, please know that no test or exam you received is perfect and you should follow up within 8 hours for continued pain. If you had any imaging studies today, such as an X-Ray or CT Scan, these studies will be reviewed later by a radiologist. You will be called if there are important findings that were not identified today, so make sure the contact information you provided at registration is correct. If you received any narcotic pain control medicine today, such as Vicodin, Morphine or Dilaudid, your coordination and judgment may be affected for a number of hours. Please do not drive or operate heavy machinery, and you may want someone to assist you at home. If you were given a prescription for narcotic medication, be aware that it is very addictive- use sparingly and only if necessary. MIKE GRIJALVA July 01, 2016 19:35
[2016-07-01] MEDS ORDERED: SULF1TAB31 PO (19:37)
[2016-07-01] MEDS ORDERED: IBUP400T22 PO (19:38)
[2016-07-01] MEDS ORDERED: CEPH-443 PO (19:38)
== END 2016-07-01 19:52 | disposition home or self-care (01) ==
LOC: FTE 18:32
DX: L02.31 Cutaneous abscess of buttock (principal); F17.210 Nicotine dependence, cigarettes, uncomplicated
CPT/HCPCS: 99284

== ENCOUNTER 2016-09-14 17:35 | Emergency (ER) | payer BC ==
[~2016-09-14] VITALS: Ht 172.7 cm; Wt 105.0 kg
[~2016-09-14 17:35] MED LIST changes: +CEPH-443 PO; +IBUP400T22 PO; +SULF1TAB31 PO
[2016-09-14 17:41] VITALS: Ht 172.7 cm; Wt 105.0 kg
--- NOTE | 2016-09-15 01:09 | ERD ---
ER Documentation Chief Complaint Date/Time DATE: 09/15/16 TIME: 01:05 Chief Complaint RIGHT MIDDLE FINGER LACERATION , CUT C/ DRILL TODAY, NO ACTIVE BLEEDING HPI 26 year old male presents with superficial lac to volar aspect of the right middle finger from cutting with a drill. He states pain is minimal, bleeding controlled. States TD 4 years prior to being seen. ROS All systems reviewed and are negative except as per history of present illness. Medications Home Meds Active Scripts Ibuprofen* (Motrin*) 400 Mg Tab, 400 MG PO Q6, #30 TAB Prov:RUDI,MIKE 07/01/16 Cephalexin* (Keflex*) 500 Mg Capsule, 500 MG PO QID for 10 Days, CAP Prov:RUDI,MIKE 07/01/16 Sulfamethoxazole/Trimethoprim* (Bactrim Ds* Tablet) 1 Each Tablet, 1 TAB PO BID , #14 TAB Prov:RUDI,MIKE 07/01/16 Docusate Sodium* (Colace*) 100 Mg Capsule, 100 MG PO BID for 10 Days, #20 CAP Prov:ESAU ARCE QUALITY REVIEW TRAINER 04/29/16 Allergies Allergies: Coded Allergies: No Known Allergy (Unverified , 09/14/16) PMhx/Soc History of Surgery: No Anesthesia Reaction: No Hx Neurological Disorder: No Hx Respiratory Disorders: No Hx Cardiac Disorders: No Hx Psychiatric Problems: No Hx Miscellaneous Medical Probl: No Hx Alcohol Use: Yes (occassional) Hx Substance Use: Yes (marijuana use every other night) Hx Tobacco Use: No Smoking Status: Unknown if ever smoked Physical Exam Vitals Vital Signs Date Time Temp Pulse Resp B/P Pulse Ox O2 Delivery O2 Flow Rate FiO2 09/14/16 17:41 98.7 80 18 126/82 97 Physical Exam General: WD/WN, in no apparent distress, non-toxic appearing HENT: NC/AT Eyes: Conjunctiva normal Neck: Supple Pulm: Normal labored breathing CV: Good capillary refill GI: Non-distended, no guarding Back: No masses Ext: No clubbing, cyanosis, or edema Neuro: Moves on all fours, no neuro deficits, sensation intact Skin: 1.2cm superficial laceration volar right middle finger. bleeding controlled. Psych: Normal mood Procedures/MDM This is a 26-year-old male presenting to the emergency department with a very superficial laceration to his right middle finger that does not require any sutures because it is very superficial. There is no arterial or nerve injury, patient's tetanus shot is up-to-date. In the ED, copious amounts of normal saline was used to irrigate the lesion and Steri-Strips were applied. Discussed return to the ER for any worsening tenseness. He understands and agrees with plan Departure Diagnosis: Primary Impression: Finger laceration Condition: Stable Patient Instructions: Laceration, Hand Additional Instructions: Follow up in 2 days in your clinic for wound check. Return to this facility if you are not improving as expected. REBECA ANTHONY PA-C Sep 15, 2016 01:09
== END 2016-09-14 19:43 | disposition home or self-care (01) ==
LOC: FTE 17:35
DX: S61.212A Laceration without foreign body of right middle finger without damage to nail, initial encounter (principal); W29.8XXA Contact with other powered hand tools and household machinery, initial encounter; Y92.9 Unspecified place or not applicable
CPT/HCPCS: 99282